=== PATIENT | female | born 1980 | race African-American/Black ===

== ENCOUNTER 2017-04-15 12:29 | Emergency (ER) | payer MEDICAID, OTHER ==
[~2017-04-15] VITALS: Ht 157.5 cm; Wt 107.0 kg
[~2017-04-15 12:29] MED LIST: PREN0.01 PO
[2017-04-15 12:30] VITALS: BP 151/89; PULSE 91; RESP 16; TEMP 98.2; O2SAT 98
--- NOTE | 2017-04-15 12:35 | PD ---
Physical Exam Date Seen by Provider: Apr 15, 2017 Time Seen by Provider: 12:31 Data Data Last Documented VS Vital Signs Date Time Temp Pulse Resp B/P Pulse Ox O2 Delivery O2 Flow Rate FiO2 04/15/17 12:30 98.2 91 16 151/89 98 MDM Supervised Visit with JAMIE: No Narrative Course 36 YO F with complaint of CP, SOB since last night. +nonproductive cough. -- lower extremity edema + 6lbs in a few days Recent hospital admission and dx of CHF following surgery. Vitals reviewed. Patient seen in triage, awaiting bed placement. Patricia Wakefield Apr 15, 2017 12:35
[2017-04-15 13:25] VITALS: BP 161/67; PULSE 72; RESP 22; O2SAT 100
[2017-04-15] MEDS ORDERED: SPIR25TA PO (13:35)
[2017-04-15] MEDS ORDERED: LISI-519 PO (13:35)
--- NOTE | 2017-04-15 13:35 | PD ---
HPI Chief Complaint: Chest Pain Time Seen by Provider: 13:35 Travel History International Travel<30 days: No Contact w/Intl Traveler<30days: No Traveled to known affect area: No History of Present Illness HPI 36-year-old female presents to the emergency department for evaluation shortness of breath. Patient states in February 2017, she had an ectopic . She underwent emergency surgery at [facility] and they removed the wrong fallopian tube. She had to be rushed back to surgery. She reports losing a large amount of blood during that time. She received a lot of fluids and blood and she went into CHF. She states since that time she has been with persistent shortness of breath. She is concerned something else may be wrong. She denies any fever or chills. No cough. No chest pain however the patient does report lower abdominal pain since the surgery. She has no other symptoms reported this time. PFSH Past Medical History Asthma: Yes Congestive Heart Failure: Yes Diminished Hearing: No Immunizations Current: No (previously stated 2009 because didn't want one) ?: Not LMP: 4-7-17 : 2 Para: 1 Ectopic : Yes (march 17, 2017 ) Past Surgical History Cholecystectomy: Yes Gynecologic Surgery: Yes (bilateral tube removal ) Social History Alcohol Use: No Tobacco Use: No (quit) Substance Use: No Allergies-Medications (Allergen,Severity, Reaction): Coded Allergies: Percocet (Verified Allergy, Severe, 04/15/17) Penicillin (Verified Allergy, Unknown, 04/15/17) Iodine (Verified Adverse Reaction, Unknown, CHILDHOOD, 04/15/17) Reported Meds & Prescriptions Reported Meds & Active Scripts Active Ventolin Hfa 18 GM Inh (Albuterol Sulfate) 90 Mcg/Act Aer 2 Puff INH Q4H PRN Prednisone 50 Mg Tab 50 Mg PO DAILY 5 Days Reported Hydrocodone-Acetaminophen 5-325 mg Tab 1 Tab PO TID PRN Carvedilol 6.25 Mg Tab 6.25 Mg PO BID Furosemide 20 Mg Tab 20 Mg PO BID Levothyroxine (Levothyroxine Sodium) 25 Mcg Tab 25 Mcg PO DAILY Lisinopril 5 Mg Tab 5 Mg PO BID Spironolactone 25 Mg Tab 25 Mg PO BIDPC Review of Systems Except as stated in HPI: all other systems reviewed are Neg Physical Exam Narrative GENERAL: Well-nourished female patient, in no acute distress. SKIN: Focused skin assessment warm/dry. HEAD: Atraumatic. Normocephalic. EYES: Pupils equal and round. No scleral icterus. No injection or drainage. ENT: No nasal bleeding or discharge. Mucous membranes pink and moist. NECK: Trachea midline. No JVD. CARDIOVASCULAR: Regular rate and rhythm. No murmur appreciated. RESPIRATORY: No accessory muscle use. Clear to auscultation. Breath sounds equal bilaterally. GASTROINTESTINAL: Abdomen soft, nondistended. Slight tenderness elicited along the lower abdomen. No guarding. No rebound tenderness. Hepatic and splenic margins not palpable. MUSCULOSKELETAL: No obvious deformities. No clubbing. No cyanosis. No edema. NEUROLOGICAL: Awake and alert. No obvious cranial nerve deficits. Motor grossly within normal limits. Normal speech. PSYCHIATRIC: Appropriate mood and affect; insight and judgment normal. Data Data Last Documented VS Vital Signs Date Time Temp Pulse Resp B/P Pulse Ox O2 Delivery O2 Flow Rate FiO2 04/15/17 18:15 64 18 112/60 100 Room Air 04/15/17 14:30 2.0 04/15/17 12:30 98.2 Orders Electrocardiogram (04/15/17 13:41) Basic Metabolic Panel (Bmp) (04/15/17 13:41) B-Type Natriuretic Peptide (04/15/17 13:41) Ckmb (Isoenzyme) Profile (04/15/17 13:41) Complete Blood Count With Diff (04/15/17 13:41) D-Dimer (04/15/17 13:41) Magnesium (Mg) (04/15/17 13:41) Prothrombin Time / Inr (Pt) (04/15/17 13:41) Act Partial Throm Time (Ptt) (04/15/17 13:41) Troponin I (04/15/17 13:41) Lipase (04/15/17 13:41) Chest, Single Ap (04/15/17 13:41) Ecg Monitoring (04/15/17 13:41) Bilateral Bp Monitoring (04/15/17 13:41) Iv Access Insert/Monitor (04/15/17 13:41) Oximetry (04/15/17 13:41) Oxygen Administration (04/15/17 13:41) Sodium Chloride 0.9% Flush (Ns Flush) (04/15/17 13:45) Albuterol-Ipratropium Neb (Duoneb Neb) (04/15/17 13:45) Ketorolac Inj (Toradol Inj) (04/15/17 14:00) Sodium Chlor 0.9% 1000 Ml Inj (Ns 1000 M (04/15/17 14:00) Ct Pulmonary Angiogram (04/15/17 ) Diphenhydramine Inj (Benadryl Inj) (04/15/17 15:45) Hydrocortisone Inj (Solucortef Inj) (04/15/17 15:45) Iohexol 350 Inj (Omnipaque 350 Inj) (04/15/17 18:02) Labs Laboratory Tests Test 04/15/17 13:40 White Blood Count 7.5 TH/MM3 Red Blood Count 4.08 MIL/MM3 Hemoglobin 12.2 GM/DL Hematocrit 36.2 % Mean Corpuscular Volume 88.6 FL Mean Corpuscular Hemoglobin 29.9 PG Mean Corpuscular Hemoglobin 33.8 % Concent Red Cell Distribution Width 14.2 % Platelet Count 213 TH/MM3 Mean Platelet Volume 8.7 FL Neutrophils (%) (Auto) 57.5 % Lymphocytes (%) (Auto) 31.0 % Monocytes (%) (Auto) 7.8 % Eosinophils (%) (Auto) 2.8 % Basophils (%) (Auto) 0.9 % Neutrophils # (Auto) 4.3 TH/MM3 Lymphocytes # (Auto) 2.3 TH/MM3 Monocytes # (Auto) 0.6 TH/MM3 Eosinophils # (Auto) 0.2 TH/MM3 Basophils # (Auto) 0.1 TH/MM3 CBC Comment DIFF FINAL Differential Comment Prothrombin Time 10.5 SEC Prothromb Time International 1.0 RATIO Ratio Activated Partial 28.2 SEC Thromboplast Time D-Dimer Quantitative (PE/DVT) 0.86 MG/L FEU Sodium Level 137 MEQ/L Potassium Level 4.0 MEQ/L Chloride Level 104 MEQ/L Carbon Dioxide Level 26.6 MEQ/L Anion Gap 6 MEQ/L Blood Urea Nitrogen 13 MG/DL Creatinine 0.82 MG/DL Estimat Glomerular Filtration 95 ML/MIN Rate Random Glucose 85 MG/DL Calcium Level 9.2 MG/DL Magnesium Level 2.0 MG/DL Total Creatine Kinase 71 U/L Troponin I LESS THAN 0.02 NG/ML B-Type Natriuretic Peptide 16 PG/ML Lipase 110 U/L [facility] Medical Decision Making Medical Screen Exam Complete: Yes Emergency Medical Condition: Yes Medical Record Reviewed: Yes Differential Diagnosis Pneumonia versus CHF versus PE versus pneumothorax versus electrolyte abnormality Narrative Course 36-year-old female presents to emergency department for evaluation shortness of breath. Patient appears without distress. CBC and CMP are without acute concern. BNP is 16. Lipase is 110. D-dimer is 0.86. [id number] Damon in regards to the patient needing premedicated prior to her CT pulmonary angiogram. He recommends 150 mg Solu-Medrol and 50 mg IV Benadryl. I have informed nursing staff to call radiology once this medication is administered. Chest x-ray is with no cardiopulmonary disease. CT pulmonary angiogram shows no pulmonary embolus. Patient is discharged home to follow-up with her primary care provider. She is also encouraged to see cardiology evaluation. She agrees to return immediately with any acute worsening of symptoms. Diagnosis Primary Impression: Shortness of breath Referrals: Primary Care Physician Stamp Analyst Patient Instructions: Dyspnea (GEN), General Instructions Additional Instructions: Follow-up with your primary care provider Seek strategic manager evaluation Return immediately with any acute worsening of symptoms Med/Other Pt SpecificInfo: Prescription(s) given Scripts Albuterol 18 GM Inh (Ventolin Hfa 18 GM Inh)90 Mcg/Act Aer2 Puff INH Q4H PRN ( SHORTNESS OF BREATH) #1 INHALER Ref 0 Prov:Jess Gleason 04/15/17 Prednisone 50 Mg Tab50 Mg PO DAILY 5 Days Ref 0 Prov:Jess Gleason 04/15/17 Disposition: 01 DISCHARGE HOME Condition: Stable Jess Gleason Apr 15, 2017 13:35
[2017-04-15] MEDS ORDERED: FURO20TA PO (13:37)
[2017-04-15] MEDS ORDERED: HYDR-3516 PO (13:37)
[2017-04-15] MEDS ORDERED: LEVO25TA4 PO (13:37)
[2017-04-15] MEDS ORDERED: CARV6.252 PO (13:37)
[2017-04-15] MEDS ORDERED: RESP: ALBUTEROL 2.5 MG/IPRATROPIUM 0.5 MG NEB (SCH) NEB ONE (13:45)
[2017-04-15] MEDS ORDERED: SODIUM CHLORIDE 0.9% FLUSH 10 ML FLUSH IVF PRN (13:45)
[2017-04-15] MEDS ORDERED: SODIUM CHLOR 0.9% 1000 ML INJ 1,000 ML IV ONE (14:00)
[2017-04-15] MEDS ORDERED: KETOROLAC TROMETHAMINE 30 MG/ML (IVP) VIAL IV PUSH ONE (14:00)
[2017-04-15 14:09] LABS: AUTOMATED NEUTROPHIL # 4.3 TH/MM3 (1.8-7.7); BASOPHIL # 0.1 TH/MM3 (0-0.2); BASOPHIL % 0.9 % (0.0-2.0); EOSINOPHIL # 0.2 TH/MM3 (0-0.4); EOSINOPHIL % 2.8 % (0.0-4.0); HEMATOCRIT 36.2 % (35.0-46.0); HEMO FLAGS DIFF FINAL; LYMPHOCYTE # 2.3 TH/MM3 (1.0-4.8); MEAN CELL VOLUME 88.6 FL (80.0-100.0); MEAN CORPUSCULAR HEMOGLOBIN 29.9 PG (27.0-34.0); MEAN CORPUSCULAR HGB CONC 33.8 % (32.0-36.0); MONO % 7.8 % (0.0-8.0); NEUT % 57.5 % (16.0-70.0); PLATELET COUNT 213 TH/MM3 (150-450); RED BLOOD COUNT 4.08 MIL/MM3 (4.00-5.30); RED CELL DISTRIBUTION WIDTH 14.2 % (11.6-17.2); WHITE BLOOD COUNT 7.5 TH/MM3 (4.0-11.0)
--- NOTE | 2017-04-15 14:16 | RADRPT ---
EXAM DATE/TIME: 04/15/2017 13:48 [facility] COMPARISON: No previous studies available for comparison. INDICATIONS : Chest pain. MEDICAL HISTORY : Congestive heart failure. Asthma. SURGICAL HISTORY : Ectopic pregnacy. ENCOUNTER: Initial ACUITY: 1 day PAIN SCORE: 0/10 LOCATION: Bilateral chest FINDINGS: A single view of the chest demonstrates the lungs to be symmetrically aerated without evidence of mas s, infiltrate or effusion. The cardiomediastinal contours are unremarkable. Osseous structures are intact. CONCLUSION: 1. No acute cardiopulmonary disease. Dae Garcia MD on April 15, 2017 at 14:13 Board Certified Radiologist. This report was verified electronically.
[2017-04-15 14:24] LABS: ANION GAP 6 MEQ/L (5-15); APTT (PATIENT) 28.2 SEC (24.3-30.1); BICARBONATE 26.6 MEQ/L (21.0-32.0); BLOOD UREA NITROGEN 13 MG/DL (7-18); CHLORIDE 104 MEQ/L (98-107); GLOMERULAR FILTRATION RATE 95 ML/MIN (>89); PROTHROMBIN TIME - PATIENT 10.5 SEC (9.8-11.6); SODIUM (NA) 137 MEQ/L (136-145)
[2017-04-15 14:25] VITALS: BP_SYST 117; BP_SYST 127; BP_DIAS 65; BP_DIAS 79; PULSE 67; PULSE 72; RESP 15; RESP 24; O2SAT 100
[2017-04-15 14:29] LABS: CREATINE KINASE 71 U/L (26-192)
[2017-04-15 14:30] VITALS: BP 127/65; PULSE 70; RESP 23; O2SAT 100
[2017-04-15] MEDS ORDERED: HYDROCORTISONE SOD SUCCINATE 100 MG VIAL IV PUSH ONE (15:45)
[2017-04-15] MEDS ORDERED: diphenhydrAMINE HCL 50 MG/ML VIAL IV PUSH ONE (15:45)
[2017-04-15] MEDS ORDERED: IOHEXOL 350 MG/ML 10 ML VIAL (for RAD DIAG) IV ONE (18:02)
--- NOTE | 2017-04-15 18:09 | RADRPT ---
EXAM DATE/TIME: 04/15/2017 17:55 [facility] COMPARISON: No previous studies available for comparison. INDICATIONS : Chest pain with shortness of breath. IV CONTRAST: 65 cc Omnipaque 350 (iohexol) IV RADIATION DOSE: 23.43 CTDIvol (mGy) MEDICAL HISTORY : Congestive hearrt failure. Asthma SURGICAL HISTORY : Cholecystectomy. ENCOUNTER: Initial ACUITY: 1 month PAIN SCALE: 7/10 LOCATION: chest Patient was premedicated for underlying contrast media allergy. TECHNIQUE: Volumetric scanning of the chest was performed using a pulmonary embolism protocol MIP images were re constructed. Using automated exposure control and adjustment of the mA and/or kV according to patien t size, radiation dose was kept as low as reasonably achievable to obtain optimal diagnostic quality images. DICOM format image data is available electronically for review and comparison. FINDINGS: PULMONARY ARTERIES: No filling defects are seen in the pulmonary arteries through the segmental level. LUNGS: There is no consolidation or pneumothorax . No concerning pulmonary nodule is visualized. PLEURAE: There is a 5 mm focal area of pleural thickening or an intrafissural lymph node seen in the right mid lung. No effusion is seen. MEDIASTINUM: There is good visualization of the great vessels of the middle mediastinum. No evidence of mediastin al or hilar adenopathy/mass. MUSCULOSKELETAL: Within normal limits for patient age. MISCELLANEOUS: The visualized upper abdominal organs demonstrate no acute abnormality. Clips are seen in the right q uadrant from prior cholecystectomy. CONCLUSION: No pulmonary embolus. Robert Addison MD on April 15, 2017 at 18:05 Board Certified Radiologist. This report was verified electronically.
[2017-04-15 18:15] VITALS: BP 112/60; PULSE 64; RESP 18; O2SAT 100
[2017-04-15] MEDS ORDERED: VENTAER INH (18:24)
[2017-04-15] MEDS ORDERED: PRED50 PO (18:24)
--- NOTE | 2017-04-16 23:51 | EKG ---
Date Performed: 04/15/2017 Time Performed: 12:41:18 PTAGE: 36 years EKG: Sinus rhythm NONSPECIFIC T-WAVE ABNORMALITY BORDERLINE ECG NO PREVIOUS TRACING DOCTOR: Berto Medrano Interpretating Date/Time 04/16/2017 23:51:05
== END 2017-04-15 18:58 | disposition home or self-care (01) ==
LOC: NEPE 12:29
DX: R06.02 Shortness of breath (principal); I50.9 Heart failure, unspecified
CPT/HCPCS: 71010; 71275; 80048; 82550; 83690; 83735; 83880; 84484; 85025; 85379; 85610; 85730; 93005; 94664; 96361; 96374; 96375; 99285; J1200; J1720; J1885; J7030; Q9967

== ENCOUNTER 2017-09-04 12:25 | Emergency (ER) | payer MEDICAID ==
[~2017-09-04] VITALS: Ht 157.5 cm; Wt 110.0 kg
[~2017-09-04 12:25] MED LIST changes: +CARV6.252 PO; +FURO20TA PO; +HYDR-3516 PO; +LEVO25TA4 PO; +LISI-519 PO; +PRED50 PO; -PREN0.01 PO; +SPIR25TA PO; +VENTAER INH
[2017-09-04 12:30] VITALS: BP 146/62; PULSE 81; RESP 16; TEMP 98.5; O2SAT 98
[2017-09-04] MEDS ORDERED: CARA1TAB6 PO (13:18)
[2017-09-04] MEDS ORDERED: DEXAMETHASONE SOD PHOS 4 MG/ML VIAL IM ONE (14:00)
[2017-09-04] MEDS ORDERED: KETOROLAC TROMETHAMINE 60 MG/2 ML (IM) VIAL IM ONE (14:00)
[2017-09-04] MEDS ORDERED: IBUP1TAB7 PO (14:01)
[2017-09-04] MEDS ORDERED: ROBA500T PO (14:01)
--- NOTE | 2017-09-04 14:01 | PD ---
HPI Chief Complaint: Back/ Neck Pain or Injury Time Seen by Provider: 13:44 Travel History International Travel<30 days: No Contact w/Intl Traveler<30days: No Traveled to known affect area: No History of Present Illness HPI 36-year-old female here for evaluation of right buttocks pain that radiates into the right leg X one day. Patient has history of sciatica with similar pain in the past. She reports pain similar to her previous sciatica. She denies fever, chills, incontinence, dysuria, saddle anesthesia, paresthesia or weakness extremity. She denies injury. Symptom severity is moderate. Worse with movement. Slightly relieved with rest. Pain scale 7/10. She reports no possibility of . PFSH Past Medical History Asthma: Yes Congestive Heart Failure: Yes Diminished Hearing: No Immunizations Current: No Tetanus Vaccination: < 5 Years Influenza Vaccination: No ?: Not LMP: 08/27/17 : 2 Para: 1 Ectopic : Yes (march 17, 2017 ) Past Surgical History Cholecystectomy: Yes Gynecologic Surgery: Yes (bilateral tube removal ) Social History Alcohol Use: No Tobacco Use: No (2-3 cigs a day) Substance Use: No Allergies-Medications (Allergen,Severity, Reaction): Coded Allergies: acetaminophen (Unverified Allergy, Severe, 09/04/17) oxycodone (Unverified Allergy, Severe, 09/04/17) penicillin G (Unverified Allergy, Unknown, 09/04/17) iodine (Unverified Adverse Reaction, Unknown, CHILDHOOD, 09/04/17) potassium iodide (Unverified Adverse Reaction, Unknown, CHILDHOOD, ) povidone-iodine (Unverified Adverse Reaction, Unknown, CHILDHOOD, 09/04/17 ) sodium iodide (Unverified Adverse Reaction, Unknown, CHILDHOOD, 09/04/17) sodium iodide (Unverified Adverse Reaction, Unknown, CHILDHOOD, 09/04/17) Reported Meds & Prescriptions Reported Meds & Active Scripts Active Ventolin Hfa 18 GM Inh (Albuterol Sulfate) 90 Mcg/Act Aer 2 Puff INH Q4H PRN Reported Carafate (Sucralfate) 1 Gram Tab 1 Gm PO QID On empty stomach Carvedilol 6.25 Mg Tab 6.25 Mg PO BID Furosemide 20 Mg Tab 20 Mg PO BID Levothyroxine (Levothyroxine Sodium) 25 Mcg Tab 25 Mcg PO DAILY Lisinopril 5 Mg Tab 5 Mg PO BID Spironolactone 25 Mg Tab 25 Mg PO BIDPC Review of Systems Except as stated in HPI: all other systems reviewed are Neg General / Constitutional: No: Fever Physical Exam Narrative GENERAL: Well-nourished, well-developed patient. SKIN: Focused skin assessment warm/dry. HEAD: Normocephalic. EYES: No scleral icterus. No injection or drainage. NECK: Supple, trachea midline. No JVD or lymphadenopathy. CARDIOVASCULAR: Regular rate and rhythm without murmurs, gallops, or rubs. RESPIRATORY: Breath sounds equal bilaterally. No accessory muscle use. GASTROINTESTINAL: Abdomen soft, non-tender, nondistended. MUSCULOSKELETAL: No cyanosis, or edema. Patient is able to flex at the hip and knee of the right leg. 2+ dorsal pedis pulse bilaterally. Normal sensation bilaterally. BACK: without obvious deformity. No CVA tenderness. TTP right buttocks Data Data Last Documented VS Vital Signs Date Time Temp Pulse Resp B/P (MAP) Pulse Ox O2 Delivery O2 Flow Rate FiO2 09/04/17 12:30 98.5 81 16 146/62 (90) 98 Orders Orders Ketorolac Inj (Toradol Inj) (09/04/17 14:00) Dexamethasone Inj (Decadron Inj) (09/04/17 14:00) MDM Medical Decision Making Medical Screen Exam Complete: Yes Emergency Medical Condition: Yes Differential Diagnosis Sciatica, lumbar strain, other Narrative Course 36-year-old female here with right low back/buttock/ leg pain. She reports a history history of sciatica with similar pain in the past. On exam she has tenderness to the right buttocks which radiates down into the leg. She will be treated for sciatica. She was instructed to follow-up with her PCP. Patient verbalizes understanding and agrees to plan Diagnosis Primary Impression: Sciatica Qualified Codes: M54.31 - Sciatica, right side Referrals: [facility] Additional Instructions: Take the medication as prescribed. Avoid heavy lifting or strenuous activity. Follow-up with her primary doctor for recheck. Return to emergency department if he developed new or worsening symptoms Scripts Methocarbamol (Robaxin) 500 Mg Tab 500 MG PO TID for Muscle Spasm, #15 TAB 0 Refills Prov: Xi Montelongo 09/04/17 Ibuprofen (Ibuprofen) 800 Mg Tab 800 MG PO Q6HR Y for PAIN, #40 TAB 0 Refills Prov: Xi Montelongo 09/04/17 Disposition: 01 DISCHARGE HOME Condition: Stable Xi Montelongo Sep 04, 2017 14:01
== END 2017-09-04 14:46 | disposition home or self-care (01) ==
LOC: PHED 12:25 → PHEFT 14:46
DX: M54.31 Sciatica, right side (principal); Z72.0 Tobacco use; Z87.39 Personal history of other diseases of the musculoskeletal system and connective tissue; Z87.09 Personal history of other diseases of the respiratory system; Z86.79 Personal history of other diseases of the circulatory system
CPT/HCPCS: 96372; 99284; J1100; J1885

== ENCOUNTER 2017-12-18 20:43 | Emergency (ER) | payer MEDICAID ==
[~2017-12-18] VITALS: Ht 157.5 cm; Wt 103.7 kg
[~2017-12-18 20:43] MED LIST changes: +CARA1TAB6 PO; -HYDR-3516 PO; +IBUP1TAB7 PO; -PRED50 PO; +ROBA500T PO
[2017-12-18 20:56] VITALS: BP 125/71; PULSE 79; RESP 16; TEMP 98.5; O2SAT 100
--- NOTE | 2017-12-18 21:11 | PD ---
HPI Chief Complaint: HAND LAC Time Seen by Provider: 21:02 Travel History International Travel<30 days: No Contact w/Intl Traveler<30days: No History of Present Illness HPI This is a 36-year-old female here with a laceration to the right hand. She denies paresthesias or weakness of the extremity. She reports she cut the hand on the sharp edge of her daughters patti. Denies possibility of retained foreign body. Severity is moderate. She is able to flex and extend all fingers. Tetanus immunization is up-to-date. PFSH Past Medical History Asthma: Yes Congestive Heart Failure: Yes Diminished Hearing: No Immunizations Current: No : 2 Para: 1 Ectopic : Yes (march 17, 2017 ) Past Surgical History Cholecystectomy: Yes Gynecologic Surgery: Yes (bilateral tube removal ) Social History Alcohol Use: No Tobacco Use: No (2-3 cigs a day) Substance Use: No Allergies-Medications (Allergen,Severity, Reaction): Coded Allergies: acetaminophen (Unverified Allergy, Severe, 09/04/17) oxycodone (Unverified Allergy, Severe, 09/04/17) penicillin G (Unverified Allergy, Unknown, 09/04/17) iodine (Unverified Adverse Reaction, Unknown, CHILDHOOD, 09/04/17) potassium iodide (Unverified Adverse Reaction, Unknown, CHILDHOOD, ) povidone-iodine (Unverified Adverse Reaction, Unknown, CHILDHOOD, 09/04/17 ) sodium iodide (Unverified Adverse Reaction, Unknown, CHILDHOOD, 09/04/17) sodium iodide (Unverified Adverse Reaction, Unknown, CHILDHOOD, 09/04/17) Reported Meds & Prescriptions Reported Meds & Active Scripts Active Robaxin (Methocarbamol) 500 Mg Tab 500 Mg PO TID Ibuprofen 800 Mg Tab 800 Mg PO Q6HR PRN Ventolin Hfa 18 GM Inh (Albuterol Sulfate) 90 Mcg/Act Aer 2 Puff INH Q4H PRN Reported Carafate (Sucralfate) 1 Gram Tab 1 Gm PO QID On empty stomach Carvedilol 6.25 Mg Tab 6.25 Mg PO BID Furosemide 20 Mg Tab 20 Mg PO BID Levothyroxine (Levothyroxine Sodium) 25 Mcg Tab 25 Mcg PO DAILY Lisinopril 5 Mg Tab 5 Mg PO BID Spironolactone 25 Mg Tab 25 Mg PO BIDPC Review of Systems Except as stated in HPI: all other systems reviewed are Neg Physical Exam Narrative GENERAL: Alert and well-appearing 36-year-old female SKIN: Warm and dry. 1 cm laceration to the palm of the right hand. No tendon or vascular injury. HEAD: Normocephalic. EYES:No injection or drainage. NECK: Supple. MUSCULOSKELETAL: No cyanosis, or edema. Right upper extremity. 1 cm laceration to the palm of the hand. No tendon or vascular injury. No foreign body. She can flex and extend all fingers. Normal sensation. Brisk cap refill. Data Data Last Documented VS Vital Signs Date Time Temp Pulse Resp B/P (MAP) Pulse Ox O2 Delivery O2 Flow Rate FiO2 12/18/17 20:56 98.5 79 16 125/71 (89) 100 Room Air Orders Orders Ibuprofen (Motrin) (12/18/17 21:30) MDM Medical Decision Making Medical Screen Exam Complete: Yes Emergency Medical Condition: Yes Differential Diagnosis Laceration, tendon injury, ligament dental injury, retained foreign body Narrative Course 36-year-old female here with a laceration to her right hand. The extremity is neurovascular intact. Laceration repair performed. This patient tolerated procedure well. Procedures Procedure Narrative LACERATION LOCATION: Right palm LENGTH: 1 CM NUMBER OF STITCHES/MARIANNA: 2 REPAIR: The area of the laceration was prepped with Betadine and sterilely draped. The laceration was infiltrated with 1% lidocaine. The wound was copiously irrigated and explored without evidence of foreign body, tendon injury or neurovascular injury. The wound was closed using 4-0 Ethilon. This was a single layer repair. A sterile dressing was applied. The patient was advised to keep the dressing clean and dry. Patient tolerated the procedure well. Diagnosis Primary Impression: Laceration of right hand Qualified Codes: S61.411A - Laceration without foreign body of right hand, initial encounter Referrals: Primary Care Physician Additional Instructions: Sutures need to be removed in 7-10 days. Wash the area with soap and water daily. Do not submerge the hand in water Return if he developed new or worsening symptoms such as increasing pain, redness, swelling of the site Scripts Meloxicam (Meloxicam) 15 Mg Tab 15 MG PO DAILY for Arthritis Pain, #30 TAB 0 Refills Prov: Xi Montelongo 12/18/17 Disposition: 01 DISCHARGE HOME Condition: Stable Xi Montelongo Dec 18, 2017 21:11
[2017-12-18] MEDS ORDERED: MELO15TA20 PO (21:25)
[2017-12-18] MEDS ORDERED: IBUPROFEN 800 MG TAB PO ONE (21:30)
== END 2017-12-18 21:33 | disposition home or self-care (01) ==
LOC: PHEFT 20:43
DX: S61.411A Laceration without foreign body of right hand, initial encounter (principal); J45.909 Unspecified asthma, uncomplicated; I50.9 Heart failure, unspecified; W26.8XXA Contact with other sharp object(s), not elsewhere classified, initial encounter; Z88.6 Allergy status to analgesic agent; Z88.5 Allergy status to narcotic agent; Z88.8 Allergy status to other drugs, medicaments and biological substances
CPT/HCPCS: 12001

== ENCOUNTER 2018-02-11 09:30 | Emergency (ER) | payer MEDICAID ==
[~2018-02-11] VITALS: Ht 157.5 cm; Wt 103.0 kg
[~2018-02-11 09:30] MED LIST changes: +MELO15TA20 PO
[2018-02-11 09:39] VITALS: BP 128/77; PULSE 77; RESP 18; TEMP 98.3; O2SAT 99
--- NOTE | 2018-02-11 10:54 | PD ---
HPI Chief Complaint: Abdominal Pain Time Seen by Provider: 10:22 Travel History International Travel<30 days: No Contact w/Intl Traveler<30days: No Traveled to known affect area: No History of Present Illness HPI 37-year-old female here with vaginal discharge 3 days. She reports discharge has a "fishy" odor. She believes this is Trichomonas or yeast infection. She has had similar symptoms in the past with trichomonas/yeast. Self treated with OTC Monistat 2 weeks ago for similar symptoms and had improvement. She is sexually active with one partner who may or may not be monogamous. She denies abdominal pain, fever, nausea, vomiting. No hematuria or flank pain. Reports intermittent mild low abdominal pressure. Symptom severity is moderate. No aggravating or alleviating factors. Reports she is not had partial hysterectomy last year. PFSH Past Medical History Asthma: Yes Congestive Heart Failure: Yes Diminished Hearing: No Immunizations Current: No Influenza Vaccination: No ?: Not : 2 Para: 1 Ectopic : Yes (march 17, 2017 ) Past Surgical History Cholecystectomy: Yes Gynecologic Surgery: Yes (bilateral tube removal ) Social History Alcohol Use: No Tobacco Use: No (2 cigs a day) Substance Use: No Allergies-Medications (Allergen,Severity, Reaction): Coded Allergies: acetaminophen (Unverified Allergy, Severe, PT DENIES, 02/11/18) oxycodone (Unverified Allergy, Severe, 02/11/18) penicillin G (Unverified Allergy, Unknown, 02/11/18) iodine (Unverified Adverse Reaction, Unknown, CHILDHOOD, 02/11/18) potassium iodide (Unverified Adverse Reaction, Unknown, CHILDHOOD, 02/11/18 ) povidone-iodine (Unverified Adverse Reaction, Unknown, CHILDHOOD, 02/11/18) sodium iodide (Unverified Adverse Reaction, Unknown, CHILDHOOD, 02/11/18) sodium iodide (Unverified Adverse Reaction, Unknown, CHILDHOOD, 02/11/18) Reported Meds & Prescriptions Reported Meds & Active Scripts Active Ventolin Hfa 18 GM Inh (Albuterol Sulfate) 90 Mcg/Act Aer 2 Puff INH Q4H PRN Review of Systems Except as stated in HPI: all other systems reviewed are Neg General / Constitutional: No: Fever Physical Exam Narrative GENERAL: Alert and well-appearing 37-year-old female SKIN: Warm and dry. HEAD: Atraumatic. Normocephalic. EYES: Pupils equal and round. No scleral icterus. No injection or drainage. ENT: No nasal bleeding or discharge. Mucous membranes pink and moist. NECK: Supple CARDIOVASCULAR: Regular rate and rhythm. RESPIRATORY: No accessory muscle use. Clear to auscultation. Breath sounds equal bilaterally. GASTROINTESTINAL: Abdomen soft, non-tender, nondistended. : Normal appearing external genitalia without lesions. Small amount of clear whitish discharge in the vaginal vault. Cervical eyes closed. No cervical friability. No CMT. no adnexal mass or tenderness MUSCULOSKELETAL: Extremities without clubbing, cyanosis, or edema. No obvious deformities. Data Data Last Documented VS Vital Signs Date Time Temp Pulse Resp B/P (MAP) Pulse Ox O2 Delivery O2 Flow Rate FiO2 02/11/18 09:39 98.3 77 18 128/77 (94) 99 Orders Orders Gc And Chlamydia Pcr (02/11/18 10:23) Wet Prep Profile (02/11/18 10:23) Urinalysis - C+S If Indicated (02/11/18 10:23) Ed Urine Pregnancytest Poc (02/11/18 10:23) Labs Laboratory Tests Test 02/11/18 10:45 Urine Collection Type CLEAN CATCH Urine Color YELLOW Urine Turbidity CLEAR Urine pH 6.0 Urine Specific [place] 1.025 Urine Protein NEG mg/dL Urine Glucose (UA) NEG mg/dL Urine Ketones NEG mg/dL Urine Occult Blood NEG Urine Nitrite NEG Urine Bilirubin NEG Urine Urobilinogen 0.2 MG/DL Urine Leukocyte Esterase NEG Urine WBC 0-2 /hpf Urine Squamous Epithelial Cells 0-5 /hpf Microscopic Urinalysis Comment CULT NOT INDICATED Urine Collection Time 10:45 Clue Cells (Wet Prep) NONE SEEN Vaginal Trichomonas (Wet Prep) NONE SEEN Vaginal Yeast (Wet Prep) NONE SEEN MDM Medical Decision Making Medical Screen Exam Complete: Yes Emergency Medical Condition: Yes Differential Diagnosis Trichomoniasis, bacterial vaginosis, GC chlamydia, UTI, PID Narrative Course 29-year-old female here with vaginal discharge and concern of trichomonas/yeast infection. She is well-appearing. No CMT. No cervical friability. She does have scant amount of whitish discharge in vaginal vault. She is reporting these symptoms are similar to yeast in the past. Wet prep is negative. GC chlamydia is pending. UA is negative for infection. I believe this is vaginitis likely yeast. Diagnosis Primary Impression: Vaginitis Qualified Codes: N76.0 - Acute vaginitis Referrals: [facility] Additional Instructions: Diflucan as directed. 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 Return if you have new or worsening symptoms. Scripts Fluconazole (Diflucan) 150 Mg Tab 150 MG PO ONCE for Infection, #1 TAB 0 Refills Prov: Xi Montelongo 02/11/18 Disposition: 01 DISCHARGE HOME Condition: Stable Xi Montelongo Feb 11, 2018 10:53
[2018-02-11 10:56] LABS: BILIRUBIN, URINE NEG (NEG); BLOOD, URINE NEG (NEG); GLUCOSE,URINE NEG (NEG); KETONE, URINE NEG (NEG); NITRITE,URINE NEG (NEG); URINE COLOR YELLOW (YELLW/STRAW); URINE LEUKOCYTE ESTERASE NEG (NEG)
[2018-02-11 11:02] LABS: SQUAMOUS EPITHELIAL CELL URINE 0-5 /hpf (0-5); WBC, URINE 0-2 /hpf (0-5)
[2018-02-11] MEDS ORDERED: DIFL150T PO (11:25)
== END 2018-02-11 11:46 | disposition home or self-care (01) ==
LOC: PHED 09:30
DX: N76.0 Acute vaginitis (principal)
CPT/HCPCS: 81001; 87210; 87491; 87591; 99284

== ENCOUNTER 2018-02-17 12:33 | Emergency (ER) | payer MEDICAID ==
[~2018-02-17] VITALS: Ht 157.5 cm; Wt 100.0 kg
[~2018-02-17 12:33] MED LIST changes: -CARA1TAB6 PO; -CARV6.252 PO; +DIFL150T PO; -FURO20TA PO; -IBUP1TAB7 PO; -LEVO25TA4 PO; -LISI-519 PO; -MELO15TA20 PO; -ROBA500T PO; -SPIR25TA PO
[2018-02-17 12:45] VITALS: BP 144/78; PULSE 82; RESP 16; TEMP 99.2; O2SAT 99
[2018-02-17] MEDS ORDERED: NAPR500T2 PO (13:21)
[2018-02-17] MEDS ORDERED: ROBA500T PO (13:21)
--- NOTE | 2018-02-17 13:21 | PD ---
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 She describes the pain as starting in her buttock radiating down the back of her left leg, intermittent, worse with sitting, associated with some numbness in her leg. She denies any loss of her bowels or bladder. She has had symptoms like this before and she has been told that sciatica. In the past it has improved with anti-inflammatories and muscle relaxers. She scheduled an appointment with her primary care doctor next week. [facility] Past Medical History Asthma: Yes Congestive Heart Failure: Yes Diminished Hearing: No Immunizations Current: No Tetanus Vaccination: < 5 Years Influenza Vaccination: No ?: Not LMP: IRREGULAR THREE WEEKS AGO : 2 Para: 1 Ectopic : Yes (march 17, 2017 ) Past Surgical History Cholecystectomy: Yes Gynecologic Surgery: Yes (fallopian tubes removal ) Social History Alcohol Use: No Tobacco Use: No Substance Use: No Allergies-Medications (Allergen,Severity, Reaction): Coded Allergies: acetaminophen (Unverified Allergy, Severe, PT DENIES, 02/17/18) oxycodone (Unverified Allergy, Severe, 02/17/18) penicillin G (Unverified Allergy, Unknown, 02/17/18) iodine (Unverified Adverse Reaction, Unknown, CHILDHOOD, 02/17/18) potassium iodide (Unverified Adverse Reaction, Unknown, CHILDHOOD, 02/17/18) povidone-iodine (Unverified Adverse Reaction, Unknown, CHILDHOOD, 02/17/18) sodium iodide (Unverified Adverse Reaction, Unknown, CHILDHOOD, 02/17/18) sodium iodide (Unverified Adverse Reaction, Unknown, CHILDHOOD, 02/17/18) Reported Meds & Prescriptions Reported Meds & Active Scripts Active No Active Prescriptions or Reported Medications Review of Systems Except as stated in HPI: all other systems reviewed are Neg Physical Exam Narrative GENERAL:Well appearing, no acute distress SKIN: Focused skin assessment warm and dry. HEAD: Atraumatic. Normocephalic. EYES: Pupils equal and round. No injection or drainage. ENT: Moist mucous membranes NECK: Trachea midline. CARDIOVASCULAR: Regular rate and rhythm. No murmur appreciated. RESPIRATORY: Clear to auscultation. Breath sounds equal bilaterally. GASTROINTESTINAL: Abdomen soft, non-tender, nondistended. MUSCULOSKELETAL: No obvious deformities. Left lower extremity is warm and well perfused. Pain with left straight leg raise. NEUROLOGICAL: Awake and alert. No obvious cranial nerve deficits. Moving all extremities. PSYCHIATRIC: Appropriate mood and affect; insight and judgment normal. Data Data Last Documented VS Vital Signs Date Time Temp Pulse Resp B/P (MAP) Pulse Ox O2 Delivery O2 Flow Rate FiO2 02/17/18 12:45 99.2 82 16 144/78 (100) 99 MDM Medical Decision Making Medical Screen Exam Complete: Yes Emergency Medical Condition: Yes Differential Diagnosis Sciatica, epidural abscess, cauda equina syndrome Narrative Course This is a 37-year-old female who presents to the emergency department with sciatica. She has no signs of cauda equina syndrome. I think she can be discharged home with conservative management. She is following up with her primary care doctor in 1 week. In the past she improved with IM steroids. She was given a dose of Decadron which helped her before and she will be discharged on muscle relaxers. Diagnosis Primary Impression: Sciatica Qualified Codes: M54.32 - Sciatica, left side Patient Instructions: General Instructions Additional Instructions: If you develop weakness of your legs, difficulty walking, numbness of your legs or your genital or rectal area, loss of your bowel or bladder, or difficulty urinating return to the emergency department immediately. Followup with your primary care physician in one week if your symptoms have not improved. Med/Other Pt SpecificInfo: Prescription(s) given Scripts Naproxen (Naproxen) 500 Mg Tab 500 MG PO BID, #15 TAB 0 Refills Prov: Sharri Foy MD 02/17/18 Methocarbamol (Robaxin) 500 Mg Tab 500 MG PO TID for Muscle Spasm, #15 TAB 0 Refills Prov: Sharri Foy MD 02/17/18 Disposition: 01 DISCHARGE HOME Condition: Stable Sharri Foy MD February 17, 2018 13:21
[2018-02-17] MEDS ORDERED: DEXAMETHASONE SOD PHOS 4 MG/ML VIAL IM ONE (13:30)
== END 2018-02-17 13:38 | disposition home or self-care (01) ==
LOC: PHED 12:33
DX: M54.32 Sciatica, left side (principal); J45.909 Unspecified asthma, uncomplicated; I50.9 Heart failure, unspecified; Z88.6 Allergy status to analgesic agent; Z88.5 Allergy status to narcotic agent; Z88.0 Allergy status to penicillin; Z88.8 Allergy status to other drugs, medicaments and biological substances
CPT/HCPCS: 96372; 99283; J1100